=== PATIENT | male | born 1975 | race Caucasian/White ===

== ENCOUNTER 2021-06-12 17:18 | Emergency (ER) | payer MEDICAID ==
[~2021-06-12] VITALS: Ht 182.9 cm; Wt 99.8 kg
[2021-06-12 17:30] VITALS: BP 101/64
[2021-06-12] MEDS ORDERED: ACET-10509 PO (19:37)
[2021-06-12 20:00] VITALS: BP 101/64
--- NOTE | 2021-06-12 20:00 | NUR ---
Patient discharged with v/s stable. Written and verbal after care instructions given and explained. Patient alert, oriented and verbalized understanding of instructions. Ambulatory with steady gait. All questions addressed prior to discharge. ID band removed. Patient advised to follow up with PMD. Rx of TYLENOL given. Patient educated on indication of medication including possible reaction and side effects. Opportunity to ask questions provided and answered. PT LEFT WITHOUT PAPERWORK.
== END 2021-06-12 20:00 | disposition home or self-care (01) ==
LOC: MED 17:18
DX: S39.012A Strain of muscle, fascia and tendon of lower back, initial encounter (principal); F15.90 Other stimulant use, unspecified, uncomplicated; Z59.00 Homelessness unspecified; Z79.899 Other long term (current) drug therapy; X58.XXXA Exposure to other specified factors, initial encounter; Y93.89 Activity, other specified; Y92.89 Other specified places as the place of occurrence of the external cause; Y99.8 Other external cause status
CPT/HCPCS: 99282